=== PATIENT | female | born 1945 | race Caucasian/White ===

== ENCOUNTER 2020-09-20 18:32 | Emergency (ER) | payer MEDICARE, BC ==
--- NOTE | 2020-09-20 20:18 | EDM.PDOC ---
ED HPI GENERAL MEDICAL PROBLEM - General Chief Complaint: Lower Extremity Injury/Pain Stated Complaint: TWISTED RT FOOT Time Seen by Provider: 09/20/20 20:07 Source of Information: Reports: Patient, RN ( ) - History of Present Illness INITIAL COMMENTS - FREE TEXT/NARRATIVE: Willow is a 75 year old female [place] area. This around 1-2pm this afternoon, walking down the incline to the head on narrow set of steps when she missed her footing on the step, rolled ankle and went into the grass/weeds and fell forward. Willow slid down the hill on her chest with injury to right anterior/lateral chest, knee abrasions and contusion and right ankle swelling and pain. Willow has been able to walk but causes pain. Willow took Tylenol around 5 pm which help most of her pain except her anile discomfort. Willow iced the area with some improvement of her symptoms. Willow has a history of ligament/tendon injury which required reconstruction of her right ankle with donor site medial great toe and calcaneus area. Right Ankle Pain Score (Numeric/FACES): 1 - Related Data Allergies Allergy/AdvReac Type Severity Reaction Status Date / Time No Known Allergies Allergy Verified 09/20/20 19:56 Home Meds: Home Meds Cholecalciferol (Vitamin D3) [Vitamin D3] 1,000 unit PO DAILY 09/20/20 [History] Gabapentin [Neurontin] 600 mg PO BEDTIME 09/20/20 [History] Levothyroxine 75 mcg PO ACBREAKFAST 09/20/20 [History] Rosuvastatin Calcium 20 mg PO DAILY 09/20/20 [History] Warfarin [Coumadin] 2.5 mg PO DAILY 09/20/20 [History] Warfarin [Coumadin] 5 mg PO DAILY 09/20/20 [History] amLODIPine [Norvasc] 2.5 mg PO BID 09/20/20 [History] carvediloL [Carvedilol] 9.375 mg PO BID 09/20/20 [History] Past Medical History HEENT History: Reports: Impaired Vision Genitourinary History: Reports: Other (See Below) Other Genitourinary History: kidney disease Hematologic History: Reports: Other (See Below) Other Hematologic History: history of leukemia Oncologic (Cancer) History: Reports: Leukemia Dermatologic History: Reports: Other (See Below) Other Dermatologic History: hx of leukemia - Past Surgical History GI Surgical History: Reports: Appendectomy Social & Family History - Tobacco Use Tobacco Use Status *Q: Never Tobacco User - Caffeine Use Caffeine Use: Reports: Coffee - Recreational Drug Use Recreational Drug Use: No Review of Systems - Review of Systems Review Of Systems: Comprehensive ROS is negative, except as noted in HPI. ED EXAM, GENERAL - Physical Exam Exam: See Below Exam Limited By: No Limitations General Appearance: Alert, WD/WN, Mild Distress (rigth ankle injury, swelling and pain) Eye Exam: Bilateral Eye: Normal Inspection Ears: Hearing Grossly Normal Nose: Normal Inspection Throat/Mouth: Normal Voice, No Airway Compromise Head: Atraumatic, Normocephalic Neck: Normal Inspection, Full Range of Motion Respiratory/Chest: No Respiratory Distress, Lungs Clear, Normal Breath Sounds, Other (tender right anterior/lateral 5-8 rib area. No abrasions, swelling or contusion noted. ) Cardiovascular: Normal Peripheral Pulses, Regular Rate, Rhythm GI/Abdominal: Normal Bowel Sounds, Soft, Non-Tender Back Exam: Normal Inspection Extremities: Normal Range of Motion (left leg), Normal Capillary Refill, Joint Swelling (lateral right ankle, pain to palpation over distal fibula, posterior and anterior joint space. ), Limited Range of Motion (right ankle ) Neurological: Alert, Oriented, CN II-XII Intact, Normal Cognition, Normal Gait Psychiatric: Normal Affect, Normal Mood Skin Exam: Warm, Dry, Intact, Normal Color, No Rash Course - Vital Signs Last Recorded V/S: Last Vital Signs Temp 36.4 C 09/20/20 19:51 Pulse 69 09/20/20 19:51 Resp 16 09/20/20 19:51 BP 112/70 09/20/20 19:51 Pulse Ox 94 L 09/20/20 19:51 - Orders/Labs/Meds Orders: Active Orders 24 hr Category Date Time Status Ankle Min 3V Rt [CR] Stat Exams 09/20/20 20:18 Taken - Re-Assessments/Exams Free Text/Narrative Re-Assessment/Exam: Right ankle 3 views: Soft tissue swelling noted. No obvious fracture or dislocations. Ankle mortis (stable). Previous surgery noting screw in calcaneus. Round ossicle distal tibia previous injury, surgery or fracture. Images read by me during ER visit and discussed with patient during visit. Radiology report pending at time of documentation. 09/20/20 20:29 Attempted weight bearing with noam wrap, not supportive enough. Air Splint, not supportive enough. Crutches recommended to decreased weight bearing but may toe touch for balance and use per comfort. Nursing staff assisted with crutch use instructions and patient able to demonstrate correct use. Air Splint may be used but not necessary. Recheck in 2 weeks if not improving as small fractures can show up on x-ray up to 2 weeks after injury. 09/20/20 21:11 Departure - Departure Time of Disposition: 21:18 Disposition: Home, Self-Care 01 Clinical Impression: Right ankle strain - Discharge Information Instructions: Ankle Sprain With Phase II Rehab-SportsMed, Muscle Strain, Ankle Sprain With Phase I Rehab-SportsMed, Crutch Use, Adult, [id number], Ankle Sprain, Ankle Sprain, Phase I Rehab-SportsMed Referrals: PCP,None [Primary Care Provider] - Forms: ED Department Discharge Additional Instructions: 1. Ice 15-20 minutes 3-4 times per day. Elevated as much as possible to help with swelling. 2. Crutches recommended to decreased weight bearing but may toe touch for balance and use per comfort. 3. Air Splint may be used but not necessary in 1 week when starting to move outside without crutches for support. 4. Noam Wrap to help support ankle for the next 2-3 weeks for swelling and stability. 5. Recheck in 2 weeks if not improving as small fractures can show up on x-ray up to 2 weeks after injury. 6. Return to ER if worsening pain or new concerns. 7. Tylenol 500-1000mg every 6-8 hrs for mild to moderate pain. 8. Ibuprofen 600mg every 6-8hrs with food for pain swelling and inflammation. (if ok with other medications. Sepsis Event Note (ED) - Evaluation Sepsis Screening Result: No Definite Risk - Focused Exam Vital Signs: Vital Signs Temp Pulse Resp BP Pulse Ox 09/20/20 19:51 36.4 C 69 16 112/70 94 L - My Orders Last 24 Hours: My Active Orders 09/20/20 20:18 Ankle Min 3V Rt [CR] Stat - Assessment/Plan Last 24 Hours: My Active Orders 09/20/20 20:18 Ankle Min 3V Rt [CR] Stat
--- NOTE | 2020-09-22 09:04 | CR ---
Ankle Min 3V Rt CLINICAL HISTORY: Injury FINDINGS: The soft tissues are swollen over the lateral malleolus.. No acute fracture or dislocation is noted. Ankle mortise is intact. Patient has fixation screw through the calcaneus from the posterior approach. Impression: Soft tissue swelling No fracture or dislocation
== END 2020-09-20 21:37 | disposition home or self-care (01) ==
LOC: JP.ED 18:32
DX: S96.911A Strain of unspecified muscle and tendon at ankle and foot level, right foot, initial encounter (principal); Z79.01 Long term (current) use of anticoagulants; Z79.899 Other long term (current) drug therapy; X50.1XXA Overexertion from prolonged static or awkward postures, initial encounter; Y93.01 Activity, walking, marching and hiking
CPT/HCPCS: 73610-26-RT; 73610-RT; 99283-25